=== PATIENT | male | born 1975 | race Caucasian/White ===

== ENCOUNTER → 2020-08-22 09:52 | Outpatient (BNVA) | payer OTHER, SELFPAY | PROVIDERS: PCP Physician Assistant; Referring Provider Physician Assistant; Visit Provider Physician Assistant | DX: Z76.89 Persons encountering health services in other specified circumstances (principal) ==

== ENCOUNTER → 2020-08-27 09:05 | Outpatient (BNVA) | payer OTHER, SELFPAY | PROVIDERS: PCP Physician Assistant; Referring Provider Physician Assistant; Visit Provider Orthopaedic Surgery | DX: Z76.89 Persons encountering health services in other specified circumstances (principal) ==

== ENCOUNTER → 2020-09-30 13:03 | Outpatient (BNVA) | payer OTHER, SELFPAY | PROVIDERS: PCP Physician Assistant; Visit Provider Orthopaedic Surgery | DX: Z76.89 Persons encountering health services in other specified circumstances (principal) ==

== ENCOUNTER → 2020-11-05 13:19 | Outpatient (BNVA) | payer OTHER, SELFPAY | PROVIDERS: PCP Physician Assistant; Visit Provider Physician Assistant | DX: Z76.89 Persons encountering health services in other specified circumstances (principal) ==

== ENCOUNTER 2020-11-13 08:09 | Day surgery (SDC) | payer OTHER, SELFPAY ==
[2020-11-07 14:14] VITALS: BMI 21.8
--- NOTE | 2020-11-12 10:29 | P.CONAN_ITS ---
Documented by User: Arti Romanney 11/12/20 10:29 HPI - Anesthesia Eval Consult details Narrative: 45yo M for Removal Orthopedic Hardware,knee [facility] Past Medical History Medical History Asthma History of back pain Right patella fracture Surgical History Surgical History S/P ORIF (open reduction internal fixation) fracture (~04/14/20) Social History Social History Are you a primary live in caregiver to a significant other at home: No Do you presently have visiting nurse or other home services: No Alcohol intake: current Alcohol intake frequency: a few times a week Smoking Status: Current every day smoker Tobacco Type: E-Cigarette Use of substances other than those prescribed or required for medical reasons: No Have you been hit, kicked, punched, or otherwise hurt by someone within the past year? 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 Allergies Allergy/AdvReac Type Severity Reaction Status Date / Time No Known Allergies Allergy Verified 11/13/20 08:18 Home Medications Medication Instructions Recorded Confirmed Type No Known Home Meds 11/07/20 11/13/20 History Exam Exam Date and Time: November 12, 2020 1029 Height,Weight and Vital Signs: Height 5 ft 9 in Weight 67.132 kg Assessment and Plan Assessment Anesthesia Assessment: Chart Reviewed Documented by User: Ori Montanez MD 11/13/20 09:39 PMFSH Past Medical History Medical History Asthma History of back pain Right patella fracture Surgical History Surgical History S/P ORIF (open reduction internal fixation) fracture (~04/14/20) Social History Social History Are you a primary live in caregiver to a significant other at home: No Do you presently have visiting nurse or other home services: No Alcohol intake: current Alcohol intake frequency: a few times a week Smoking Status: Current every day smoker Tobacco Type: E-Cigarette Use of substances other than those prescribed or required for medical reasons: No Have you been hit, kicked, punched, or otherwise hurt by someone within the past year? 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 Allergies Allergy/AdvReac Type Severity Reaction Status Date / Time No Known Allergies Allergy Verified 11/13/20 08:18 Home Medications Medication Instructions Recorded Confirmed Type No Known Home Meds 11/07/20 11/13/20 History Exam Airway Mallampati Class: II TM Dist: >3cm Neck ROM: Full Loose/Missing/Broken Teeth: No Heart: RRR Lungs: NL Other: AO Assessment and Plan Assessment Anesthesia Assessment: Anesthesia Plan Discussed and Chart Reviewed Final Anesthetic Review NPO: Yes ASA Class: I Final Preanesthetic Review: No Changes in Pt Med Stat, Meds/Allgs Chart Reviewed, Consent Obtained/Reviewed and Anes Risks/Benef Reviewed Patient Risk: Low Procedure Risk: Low Anesthetic Plan Anesthetic Plan: GA Disposition: Standard PACU
[2020-11-13] VITALS (7 sets, daily range): BP systolic 123–149; BP diastolic 82–93; PULSE 61–75; RESP 16–20; TEMP 36–36.6; O2SAT 97–100
--- NOTE | 2020-11-13 07:35 | MHC.SHP ---
Pre-Procedural Eval Section A The patient is an INPATIENT: No Changes since office visit: No Cold of Flu in the past 2 weeks, No New Medical Problems, No Changes in Medication and No Patient answered all questions The History & Physical has been completed within 30 days and I have reviewed it.: Yes Section B Chief Complaint: knee pain Allergies: Allergies Allergy/AdvReac Type Severity Reaction Status Date / Time No Known Allergies Allergy Verified 11/05/20 13:43 Plan I have reviewed the history and physical and performed a pertinent physical examination on my patient. No changes have occurred unless specified.
[2020-11-13] MEDS: Lactated Ringers 1,000 ML 100 ML IVCONT (08:48)
--- NOTE | 2020-11-13 10:49 | PM.PRCOR ---
Brief Operative Note Date of procedure: 11/13/20 Pre-op diagnosis: Retained hardware right patella Post-op diagnosis: same Procedure: Removal of hardware right knee Anesthesia: GLMA Surgeon: Juanjose Carr Personal Finance Instructor: Codie Craft Estimated blood loss (mL): 20 Condition: stable Disposition: PACU
[2020-11-13] MEDS: oxyCODONE HCl Immed Release 5 MG TABLET PO (11:02)
[2020-11-13] MEDS: Acetaminophen 325 MG TABLET 650 MG PO (11:03)
--- NOTE | 2020-11-13 12:47 | HO.POSTANES ---
Post Anesthesia Evaluation Post Anesthesia Evaluation Vital Signs: Vital Signs Temp Pulse Resp BP Pulse Ox 11/13/20 11:35 97 F 66 16 141/87 H 99 11/13/20 11:20 64 16 138/85 100 11/13/20 11:05 68 18 135/90 H 99 11/13/20 11:00 66 18 132/87 99 11/13/20 10:55 61 18 133/87 99 11/13/20 10:50 96.8 F 75 20 123/82 100 11/13/20 08:30 97.8 F 72 16 149/93 H 97 Anesthesia: General LMA Mental Status: Awake Pain Control: Satisfactory Nausea/Vomiting: None Hydration: Adequate Anesthesia-Related Issues: No Anes. Related Issues
--- NOTE | 2020-11-18 09:46 | OP_ITS ---
SURGEON: Juanjose Carr MD PREOPERATIVE DIAGNOSIS: Retained/painful hardware, right knee. POSTOPERATIVE DIAGNOSIS: Retained/painful hardware, right knee. PROCEDURE PERFORMED: Removal of hardware, right patella. ESTIMATED BLOOD LOSS: COMPLICATIONS: ANESTHESIA: ASSISTANTS: MYRON Galloway. SPECIMENS: CLINICAL NOTE: This gentleman had operative fixation of his patella last year. He now is having problems with the hardware and therefore after explaining the risks, benefits, and alternatives and answering all his questions, it was mutually agreed upon to carry out the following procedure. DESCRIPTION OF PROCEDURE: Under a general anesthetic, the patient was placed supine on the operating table. Pneumatic tourniquet cuff was placed around the upper right thigh, but was not inflated during the case. The right knee was then prepped and draped in standard fashion. Surgical time-out was then performed. The patient was identified, procedure confirmed, site confirmed. Medical analogy and history were reviewed. Preoperative antibiotics were not given. No DVT prophylaxis. All other items were discussed and agreed upon. Standard midline incision of the knee was carried out over the old scar. The hardware was identified. The 2 parallel wires were removed first and then the cerclage wire was removed without incident. At this point, we proceeded to closure. Wound was thoroughly irrigated. Skin approximated using interrupted 2-0 Dexon. Skin was closed with ivy. Sterile dressing was then applied. The patient's anesthesia was then reversed and transferred supine to the room bed, then taken to recovery room in good condition. Intraoperatively, there was approximately 10 mL blood loss. No complications. Juanjose Carr MD KKI/MODL / [id number]
== END 2020-11-13 12:07 | disposition home or self-care (01) ==
PROVIDERS: PCP Physician Assistant; Visit Provider Orthopaedic Surgery
PROC: (CPT 20680; principal; 2020-11-13 09:50)
DX: T84.84XA Pain due to internal orthopedic prosthetic devices, implants and grafts, initial encounter (principal); Z98.890 Other specified postprocedural states; M25.561 Pain in right knee; Y79.3 Surgical instruments, materials and orthopedic devices (including sutures) associated with adverse incidents; Y92.9 Unspecified place or not applicable; J45.909 Unspecified asthma, uncomplicated; F17.290 Nicotine dependence, other tobacco product, uncomplicated
CPT/HCPCS: 20680; J1100; J2405; J3010

== ENCOUNTER 2020-11-20 11:02 | Outpatient (REF) | payer OTHER, SELFPAY | END 2020-11-20 11:03 | disposition home or self-care (01) | LOC: HO.LAB 11:02 | PROVIDERS: PCP Physician Assistant; Visit Provider Internal Medicine | DX: Z20.822 Contact with and (suspected) exposure to COVID-19 (principal) | CPT/HCPCS: 36415; C9803; U0003 ==

== ENCOUNTER → 2020-11-26 13:50 | Outpatient (BNVA) | payer OTHER, SELFPAY | PROVIDERS: PCP Physician Assistant; Visit Provider Physician Assistant | DX: Z76.89 Persons encountering health services in other specified circumstances (principal) | CPT/HCPCS: 99212 ==

== ENCOUNTER 2020-12-01 09:00 | Outpatient (RCR) | payer OTHER, SELFPAY ==
--- NOTE | 2020-08-20 14:37 | MHC.PT.OD ---
[facility] [place] [facility] [place] [facility] [place] Office [address] Elizabeth Rosa [address] [phone] F: [phone] F: [phone] F: [phone] F: [phone] Physical Therapy Daily Note Diagnosis: ORIF RIGHT PATELLA Date of Surgery: 04/14/2020 Date of Evaluation: 05/12/20 Treatments to Date: 27 Cancellations to Date: 1 No Shows to Date: 0 Authorized Visits: PENDING ADDITIONAL Insurance End Date: Precautions/ Contraindications:S/P ORIF RIGHT PATELLA CLOSED FX Subjective: Pt has MD follow up Aug 22. Pain Score: Pain Location: Objective Flowsheet: Tests & Measures Pt ching 8 step w/o px. Exercises ELIPTICAL X 10 MIN qs level 2 standing hip abd ea side in cybex 30 ea UE support. calf raises x 30. B hamstring curls: 3x10 step ups 8 x 30 step up<>over foam roll 3x10 SP REV50#/FWD AMB 50# AT WAIST HT 2x 10REPS SP side stepping 10 reps ea direction SP SLS r for UE exts ROCKERBOARD BALANCE : 4# MED BALL SQUATS X 30/BALL TOSS OFF WALL CHEST/OVERHEAD/DRIBBLINGX 50/ OFF REBOUNDER OVERHEAD/SINGLE ARM X 30EA Modalities Assessment: Lino presents today with no complaints of pain, only minimal sensation distal patella secondary to pin. He demonstrates significantly improved strength and ROM, demonstrates improved gait patterning with only minimal heel strike lag noted on this date. PT Plan: TRIALLOW IMPACT JUMP PROGRAM/RETURN TO RUN IF OK PER MD Discharge Today? 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
--- NOTE | 2020-11-24 13:55 | MHC.PT.DC ---
[facility] [place] Office [place] Office [place] Office [address] Elizabeth Rosa [address] [phone] F: [phone] F: [phone] F: [phone] F: [phone] Physical Therapy Discharge Report Diagnosis: ORIF RIGHT PATELLA Date of Surgery: 04/14/2020 Date of Evaluation: 05/12/20 Date of Discharge: 11/12/20 Treatments to Date: 42 Cancellations to Date: 1 No Shows to Date: 0 Discharge Status: Discharge Summary: 10/17 pt has surgery scheduled Nov 13. pre op the Oct. Electronically signed by: Jaylyn Disla BUFFING WHEEL INSPECTOR Please sign and return to therapist. Thank you for your referral.
--- NOTE | 2021-01-01 12:06 | MHC.PT.DC ---
[facility] [place] Office [place] Office [place] Office [address] Elizabeth Rosa [address] [phone] F: [phone] F: [phone] F: [phone] F: [phone] Physical Therapy Discharge Report Diagnosis: ORIF RIGHT PATELLA Date of Surgery: 04/14/2020 Date of Evaluation: 05/12/20 Date of Discharge: Treatments to Date: 42 Cancellations to Date: 7 No Shows to Date: 1 Discharge Status: Discharge Summary: Following the removal of his patellar hardware Lino initially arrived with significant reduction in pain and improvement in mobility. Unfortunately, due to his work schedule he was unable to attend therapy since 12/01/20. He has no additional visits scheduled with us and we are DCing him at this. Electronically signed by: CISCO NOONAN PT, DPT Please sign and return to therapist. Thank you for your referral.
== END 2021-01-26 13:46 | disposition other institution (70) ==
LOC: HO.PT 09:00
PROVIDERS: Visit Provider Physician Assistant
DX: S82.031D Displaced transverse fracture of right patella, subsequent encounter for closed fracture with routine healing (principal)
CPT/HCPCS: 97110; 97112; 97140; 97530

== ENCOUNTER 2021-06-01 09:54 | Outpatient (REF) | payer OTHER, SELFPAY ==
[2021-06-01 12:04] LABS: Estimated Average Glucose 114 mg/dL; Hemoglobin A1c % 5.6 %
[2021-06-01 12:26] LABS: Alanine Aminotransferase 15 U/L (0-40); Albumin Level 4.9 g/dL (3.5-5.0); Alkaline Phosphatase 84 U/L (39-117); Anion Gap 15 (12-20); Aspartate Amino Transferase 20 U/L (5-37); Bilirubin Total 0.6 mg/dL (0.0-1.0); Blood Urea Nitrogen 16 mg/dL (9-16); Calcium 9.8 mg/dL (8.4-10.2); Carbon Dioxide 24 mmol/L (22-29); Chloride 105 mmol/L (96-108); Cholesterol 227 mg/dL; Estimated Glomerular Filt Rate > 60; Glucose Fasting 93 mg/dL (60-99); HDL Cholesterol 49 mg/dL; LDL Cholesterol Calculated 135 mg/dl; Potassium 4.4 mmol/L (3.3-5.1); Sodium 140 mmol/L (135-145); Total Protein 8.4 g/dL (6.5-8.0); Triglycerides 217 mg/dL
[2021-06-01 13:32] LABS: Free T4 (Free Thyroxine) 0.96 ng/dL (0.71-1.85)
== END 2021-06-01 09:55 | disposition home or self-care (01) ==
LOC: HO.LAB 09:54
PROVIDERS: PCP Physician Assistant; Visit Provider Physician Assistant
DX: Z12.5 Encounter for screening for malignant neoplasm of prostate (principal); Z13.29 Encounter for screening for other suspected endocrine disorder; Z13.220 Encounter for screening for lipoid disorders
CPT/HCPCS: 36415; 80053; 80061; 83036; 84153; 84439; 84443

== ENCOUNTER 2022-07-22 06:01 | Outpatient (REF) | payer OTHER, SELFPAY ==
[2022-07-22 07:49] LABS: Hematocrit 38.7 % (42.0-52.0); Hemoglobin 12.1 g/dl (14.0-18.0); Mean Corpuscular HGB Conc 31.3 g/dl (31.0-36.0); Mean Corpuscular Hemoglobin 23.9 pg (27.0-33.0); Mean Corpuscular Volume 76.5 fL (80.0-98.0); Mean Platelet Volume 8.9 fL (9.4-12.4); Platelet Count 449 X10*3/uL (160-400); Red Blood Count 5.06 X10*6/uL (4.60-5.80); Red Cell Distribution Width 15.5 % (11.0-16.0)
[2022-07-22 08:24] LABS: Alanine Aminotransferase 16 U/L (0-40); Albumin Level 4.4 g/dL (3.5-5.0); Alkaline Phosphatase 73 U/L (39-117); Anion Gap 16 (12-20); Aspartate Amino Transferase 18 U/L (5-37); Bilirubin Total 0.5 mg/dL (0.0-1.0); Blood Urea Nitrogen 14 mg/dL (9-16); Calcium 9.4 mg/dL (8.4-10.2); Carbon Dioxide 28 mmol/L (22-29); Chloride 104 mmol/L (96-108); Cholesterol 150 mg/dL; Estimated Glomerular Filt Rate > 60; Glucose Fasting 76 mg/dL (60-99); HDL Cholesterol 50 mg/dL; LDL Cholesterol Calculated 69 mg/dl; Potassium 4.5 mmol/L (3.3-5.1); Sodium 143 mmol/L (135-145); Total Protein 7.4 g/dL (6.5-8.0); Triglycerides 159 mg/dL
[2022-07-22 08:47] LABS: Prostate Specific Antigen Scr 0.51 ng/mL (<0.05-4.0); TSH reflex Free T4 0.99 uIU/mL (0.32-4.0)
== END 2022-07-22 06:02 | disposition home or self-care (01) ==
LOC: HO.LAB 06:01
PROVIDERS: PCP Physician Assistant; Visit Provider Physician Assistant
DX: Z12.5 Encounter for screening for malignant neoplasm of prostate (principal); Z13.29 Encounter for screening for other suspected endocrine disorder; Z13.220 Encounter for screening for lipoid disorders
CPT/HCPCS: 36415; 80053; 80061; 84153; 84443; 85027

== ENCOUNTER 2022-07-23 06:08 | Outpatient (REF) | payer OTHER, SELFPAY ==
[2022-07-23 08:09] LABS: Iron 84 mcg/dL (45-160); Percent Iron Saturation 23 % (15-50); Total Iron Binding Capacity 370 mcg/dL (228-428); Unsaturated Iron Binding 286 ug/dL
== END 2022-07-23 06:09 | disposition home or self-care (01) ==
LOC: HO.LAB 06:08
PROVIDERS: PCP Physician Assistant; Visit Provider Physician Assistant
DX: D50.9 Iron deficiency anemia, unspecified (principal)
CPT/HCPCS: 36415; 83540

== ENCOUNTER → 2022-09-15 14:40 | Outpatient (BNVA) | payer OTHER, SELFPAY | PROVIDERS: PCP Physician Assistant; Visit Provider Nurse Practitioner | DX: Z01.818 Encounter for other preprocedural examination (principal) | CPT/HCPCS: 99202; 99212 ==

== ENCOUNTER 2023-05-17 10:03 | Day surgery (SDC) | payer OTHER, SELFPAY ==
[2023-05-17 10:34] VITALS: BMI 20.1
[2023-05-17 10:46] VITALS: BP 111/79; PULSE 74; RESP 16; TEMP 36.7; O2SAT 100
--- NOTE | 2023-05-17 11:10 | MHC.SHP ---
Pre-Procedural Eval Section A Date of Service: 05/17/23 The patient is an INPATIENT: No The History & Physical has been completed within 30 days and I have reviewed it.: No Section B Chief Complaint: screening Relevant Family History (Specify if Yes): No Relevant Social History: Tobacco Use (E cig) Present Medications: see Short Stay Collaborative assessment Medical History: Significant History (Asthma Borderline high cholesterol Insomnia History of patella fracture History of low back pain) History of Previous Operations: Relevant previous surgery/procedure and date(s) (S/P ORIF (open reduction internal fixation) fracture (~04/14/20)) Allergies: Allergies Allergy/AdvReac Type Severity Reaction Status Date / Time No Known Allergies Allergy Verified 09/15/22 14:47 Review of Systems Sugical H&P ROS: Negative: Constitution, Cardiovascular, Respiratory and Gastrointestinal Exam Surgical H&P Exam: Normal: Heart, Normal: Lungs, Normal: Extremities and Normal: Abdomen Plan Diagnosis/Plan: Unchanged I have reviewed the history and physical and performed a pertinent physical examination on my patient. No changes have occurred unless specified. Time Spent With Patient Time: Total time managing care of this patient today ____ minutes.
--- NOTE | 2023-05-17 11:59 | HO.ANESPROP2 ---
Documented by User: Arti Anderson NP 05/16/23 12:02 HPI - Anesthesia Eval Consult details Narrative: 47yo M for Colonoscopy PMFSH Active Problems Active Problems: All Active Problems (Updated 09/15/22 @ 14:53 by SALAS Strickland) Pre-op examination (Acute) Anemia (Acute) Borderline high cholesterol (Acute) Colon cancer screening (Acute) Insomnia (Acute) Annual physical exam (Acute) Screening for hypothyroidism (Acute) Screening for hypercholesterolemia (Acute) Screening for diabetes mellitus (DM) (Acute) S/P hardware removal (Acute) Fracture of patella with routine healing (Acute) History of removal of retained hardware (Acute) Past Medical History Medical History Asthma History of back pain Right patella fracture Family History Family History Mother Mental health disorder Breast cancer in female Surgical History Surgical History S/P ORIF (open reduction internal fixation) fracture (~04/14/20) Social History Social History Housing: Apartment Are you a primary healthcare or medical to a significant other at home: No Do you presently have visiting nurse or other home services: No Alcohol intake: current Alcohol intake frequency: holidays/special occasions only Alcohol type: beer Patient Tobacco Use Status: Current everyday Tobacco user Tobacco use type: Smokeless Tobacco e-Cigarette/Vaping Use: Currently Using Use of substances other than those prescribed or required for medical reasons: Yes Substance Use Frequency: Daily Are you DNR?: No Advance Directives: No Advance Directives Information Provided: Yes Advance Directives on File: No service: No Current occupational status: employed 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 Allergies Allergy/AdvReac Type Severity Reaction Status Date / Time No Known Allergies Allergy Verified 09/15/22 14:47 Exam Exam Date and Time: May 16, 2023 120 Assessment and Plan Assessment Anesthesia Assessment: Chart Reviewed Documented by User: Bernarda Sousa DO 05/17/23 12:00 [facility] Past Medical History Medical History Asthma History of back pain Right patella fracture Family History Family History Mother Mental health disorder Breast cancer in female Family history of problems with anesthesia: No Surgical History Surgical History S/P ORIF (open reduction internal fixation) fracture (~04/14/20) History of Problems with Anesthesia: No Social History Social History Housing: Apartment Are you a primary healthcare or medical to a significant other at home: No Do you presently have visiting nurse or other home services: No Alcohol intake: current Alcohol intake frequency: holidays/special occasions only Alcohol type: beer Patient Tobacco Use Status: Current everyday Tobacco user Tobacco use type: Smokeless Tobacco e-Cigarette/Vaping Use: Currently Using Use of substances other than those prescribed or required for medical reasons: Yes Substance Use Frequency: Daily Are you DNR?: No Advance Directives: No Advance Directives Information Provided: Yes Advance Directives on File: No service: No Current occupational status: employed 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 Allergies Allergy/AdvReac Type Severity Reaction Status Date / Time No Known Allergies Allergy Verified 09/15/22 14:47 Exam Height,Weight and Vital Signs: Height 5 ft 8 in Weight 59.874 kg Vital Signs Temperature 98.0 F 05/17/23 10:46 Pulse Rate 74 05/17/23 10:46 Respiratory Rate 16 05/17/23 10:46 Blood Pressure 111/79 05/17/23 10:46 Pulse Oximetry 100 05/17/23 10:46 Oxygen Delivery Method Room Air 05/17/23 10:46 Temperature 98.0 F 05/17/23 10:46 Pulse Rate 74 05/17/23 10:46 Respiratory Rate 16 05/17/23 10:46 Blood Pressure 111/79 05/17/23 10:46 Pulse Oximetry 100 05/17/23 10:46 Oxygen Delivery Method Room Air 05/17/23 10:46 Airway Mallampati Class: I TM Dist: >3cm Neck ROM: Full Loose/Missing/Broken Teeth: No Heart: S1S2 Lungs: CTAB Assessment and Plan Assessment Anesthesia Assessment: Anesthesia Plan Discussed and Chart Reviewed Final Anesthetic Review Family History of Problems with Anesthesia: No History of Problems with Anesthesia: No NPO: Yes ASA Class: I Final Preanesthetic Review: No Changes in Pt Med Stat, Meds/Allgs Chart Reviewed, Consent Obtained/Reviewed and Anes Risks/Benef Reviewed Patient Risk: Low Procedure Risk: Low Anesthetic Plan Anesthetic Plan: MAC: and Agree w/ Assess. and Plan Disposition: Standard PACU
--- NOTE | 2023-05-17 12:46 | W.PM.OPN ---
Operative Note Operative Note Date of Service: 05/17/23 Narrative: COLONOSCOPY TILL CECUM WITH BIOPSIES Pre-op diagnosis: Colon cancer screening Post-op diagnosis:? Colon polyps, diverticulosis, hemorrhoids Endoscopist:? Mark Motta MD Anesthesia:?MAC Consent: Indications for the procedure and potential complications of bleeding, perforation, reaction to medications and missed diagnosis were discussed with the patient and informed consent was obtained. Instrument: Olympus PCF H 190 L variable stiffness pediatric colonoscope Monitoring: Vital signs and clinical assessment, intermittent blood pressure monitoring, continuous EKG monitoring, Pulse oximetry and Carbon Dioxide monitoring were done throughout the procedure. Please see anesthesia flowsheet. Colon withdrawl time was 24 minutes. Procedure: The patient was placed in the left lateral decubitis position and pre-procedure medications were administered. After a digital rectal examination of the ano-rectum, the video colonoscope was inserted into the rectum and advanced through the colon to the cecum. The colonoscope was slowly withdrawn in a retrograde panoramic fashion and the colon mucosa was carefully examined including a retroflexed view of the rectum. Findings and interventions are described below. Procedure Difficulty: Without difficulty Findings: Terminal Ileum: Not evaluated Cecum: Normal Ascending Colon: Normal Transverse Colon: Normal Descending Colon: Moderate diverticulosis Sigmoid Colon: Moderate diverticulosis Rectum: Two 8 - 10 mm diminutive appearing polyps - biopsied. Ano-rectum: Moderate internal hemorrhoids Colon preparation: Excellent - there were excessive bubbles in the colon which were washed and suctioned. Impression and Post Procedure Diagnosis: Colonoscopy Findings: Two 8 - 10 mm diminutive appearing polyps - biopsied. Moderate diverticulosis seen in the left colon Moderate hemorrhoids on retroflexed exam. Plan: Await pathology results Patient has an appointment on 05/27/23 in the GI Clinic with Basilia Hull NP. Repeat Colonoscopy interval based on path results - in 1 year if polyps are adenomatous and 10 years if polyps are hyperplastic. Above findings were reviewed with the patient and colon polyps and diverticulosis handouts were given in the discharge area
[2023-05-17 12:54] VITALS: BP 95/60; PULSE 62; RESP 16; TEMP 36.1; O2SAT 97
[2023-05-17 13:08] VITALS: BP 115/78; PULSE 66; RESP 18; TEMP 36.1; O2SAT 100
== END 2023-05-17 13:56 | disposition home or self-care (01) ==
PROVIDERS: PCP Physician Assistant; Visit Provider Internal Medicine Gastroenterology
PROC: 0DJD8ZZ Inspection of Lower Intestinal Tract, Via Natural or Artificial Opening Endoscopic (ICD-10-PCS; CPT 45378; principal; 2023-05-17 11:50)
DX: Z12.11 Encounter for screening for malignant neoplasm of colon (principal); K63.5 Polyp of colon; K57.30 Diverticulosis of large intestine without perforation or abscess without bleeding; K64.8 Other hemorrhoids; F17.200 Nicotine dependence, unspecified, uncomplicated; Z80.3 Family history of malignant neoplasm of breast
CPT/HCPCS: 45380; 88305

== ENCOUNTER → 2023-05-17 10:03 | Outpatient (BNV) | payer OTHER, SELFPAY | PROVIDERS: PCP Physician Assistant; Visit Provider Internal Medicine Gastroenterology | DX: Z12.11 Encounter for screening for malignant neoplasm of colon (principal); K63.5 Polyp of colon; K57.30 Diverticulosis of large intestine without perforation or abscess without bleeding | CPT/HCPCS: 45380 ==

== ENCOUNTER 2023-05-27 09:30 | Outpatient (AMB) | payer OTHER, SELFPAY ==
--- NOTE | 2023-05-27 09:32 | A.OFFVIS_ITS ---
Intake Vital Signs 05/27/23 09:34 Height 5 ft 8 in Weight 132 lb 0.91 oz BMI 20.1 BP 113/74 Blood Pressure Location Lt brachial Position Sitting Pulse 83 Intake Visit Reasons: S/p Monica Intake Note: Patient presents to in office visit today in colonoscopy follow up. Reports doing good and denies having any GI symptoms today. Underwent colonoscopy on 05/17/[address] Motta. Manager Analytical Required: No Allergies No Known Allergies Allergy (Verified 05/27/23 09:38) HPI S/p Monica HPI Details Assessment & Plan (1) Pre-op examination: ?Code(s): Z01.818 - Encounter for other preprocedural examination ?Plan: This will be his first colonoscopy He denies any bowel or upper GI problems. There was no trouble with anesthesia or sedation during his patella repair. His asthma is well controlled and no cardiac problems. No ID problems. There is no FHX of crc or polyps, but a lot of breast cancer. ? ? ? Medications: New peg 3350-electroly martha [id number] -5.86 gram (Golyt nikky) ?? until feca l effluent is bud r; do not exceed a total volume of 2 ,000 mL 240 mL? PO Q10M 1 day 4,000 mL 0RF Z12.11 - Encounter for screening for malignant neoplas m of colon COLONOSCOPY 05/17/23 Findings: Terminal Ileum: Not evaluated Cecum:? Normal Ascending Colon:? Normal Transverse Colon:? Normal Descending Colon:? Moderate diverticulosis Sigmoid Colon:? Moderate diverticulosis Rectum:? Two 8 - 10 mm diminutive appearing polyps - biopsied. Ano-rectum:? Moderate internal hemorrhoids Colon preparation: Excellent ? - there were excessive bubbles in the colon which were washed and suctioned. Impression and Post Procedure Diagnosis: Colonoscopy Findings: Two 8 - 10 mm diminutive appearing polyps - biopsied. Moderate diverticulosis seen in the left colon Moderate hemorrhoids on retroflexed exam. Plan: Await pathology results Patient has an appointment on 05/27/23 in the GI Clinic with? Basilia Hull NP. Repeat Colonoscopy interval based on path results - in 1 year if polyps are adenomatous and 10 years if polyps are hyperplastic. BIOPSY Received: 05/17/23 Diagnosis Rectum, polypectomy:? Hyperplastic polyp. TODAY'S VISIT He is agreeable to a 10 year follow up. The procedure was well tolerated. The results were explained and the patient is agreeable to the follow-up interval as stated. The bowel pattern has returned to normal. Education was provided to tell any 1st degree relatives about their findings to be sure that they are screened by age 45. Educated that they will be put on a recall list when it is time for their repeat scope but should they move out of state or away from the hospital they will need to remember along with their primary to repeat the procedure in a timely fashion to avoid any adverse complications. FORMERLY [facility], [facility]1983 Medical History Annual physical exam Asthma Colon cancer screening History of back pain Pre-op examination Right patella fracture Screening for diabetes mellitus (DM) Screening for hypercholesterolemia Screening for hypothyroidism Surgical History S/P ORIF (open reduction internal fixation) fracture (~04/14/20) Family History Mother Mental health disorder Breast cancer in female Social History Housing: Apartment Are you a primary patient care manager to a significant other at home: No Do you presently have visiting nurse or other home services: No Alcohol intake: current Alcohol intake frequency: holidays/special occasions only Alcohol type: beer Patient Tobacco Use Status: Current everyday Tobacco user Tobacco use type: Smokeless Tobacco e-Cigarette/Vaping Use: Currently Using Advance Directives: No Advance Directives Information Provided: No service: No Current occupational status: employed 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 Review of Systems Const Denies fatigue, Denies fever(s), Denies night sweats, Denies poor appetite and Denies weight loss ENT Reports Normal hearing present, Denies dental pain, Denies dysphagia, Denies hearing loss, Denies mouth pain, Denies odynophagia, Denies throat swelling, Denies tongue swelling and Reports other (Dentition adequate) Card Reports no additional complaints Resp Reports no additional complaints GI Denies abdominal pain, Denies melena, Denies bloating, Denies hematochezia, Denies constipation, Denies GI cramping, Denies dysphagia, Denies excessive flatus, Denies early satiety, Denies heartburn, Denies diarrhea, Denies nausea, Denies odynophagia, Denies vomiting and Denies hematemesis Skin/Breast Denies pruritus, Denies lesions, Denies rash and Denies jaundice Neuro Reports Normal hearing present and Denies Abnormal speech present Endo Denies fatigue Aller/Immun Denies throat swelling and Denies tongue swelling Physical Exam Vital Signs: Last Vital Signs Pulse 83 05/27/23 09:34 BP 113/74 05/27/23 09:34 BMI result Body Mass Index 20.1 Const General: cooperative, no acute distress, well developed and well groomed Nutritional Appearance: average body habitus and well nourished Orientation/consciousness: oriented to person, oriented to place and oriented to time Limitations: No language barrier HEENT Head: Yes normocephalic and Yes atraumatic Eyes General: appearance normal, both eyes and all related structures Pupils: Equal, round and reactive pupils present Neck Neck: Yes normal visual inspection and Yes no lymphadenopathy Thyroid: Thyroid normal Resp Effort & Inspection: normal respiratory effort and able to speak in complete sentences Auscultation: clear to auscultation bilaterally Cardio Rate: regular rate Rhythm: regular rhythm Heart sounds: Normal, physiologic split S2 sound present Peripheral pulses: radial pulses present and posterior tibial pulses present GI Inspection: No distended and No Abdominal panniculus present Palpation (GI): Soft to palpation, nontender, no guarding, not rigid and No hepatosplenomegaly present Percussion: Yes normal to percussion Auscultation: normal bowel sounds Rectal Exam - Male: Yes deferred Skin General skin exam: no rashes or lesions noted, turgor normal, skin not dry, no jaundice, No spider nevi and no striae Rashes: no rashes Nails: normal Neuro General: oriented to person, oriented to place and oriented to time Cranial nerves: Yes Equal, round and reactive pupils present and Yes Normal hearing present Speech: No Abnormal speech present Extrem General: Yes normal to inspection, No clubbing, No cyanosis and No edema Psych Appearance: grossly normal and well kempt Mental Status: mental status grossly normal Speech and movement: Normal speech and movement present Affect: normal affect Attitude: cooperative Thought process: Normal thought process present and not confabulating Thought content: Normal thought content present Insight: Good insight present (Psych) Judgement: Good judgement present (Psych) Assessment & Plan Assessment & Plan (1) Colon cancer screening: Comment: 2022 equal hyperplastic polyp repeat in 10 years Code(s): Z12.11 - Encounter for screening for malignant neoplasm of colon Plan: He is agreeable to a 10 year follow up. The procedure was well tolerated. The results were explained and the patient is agreeable to the follow-up interval as stated. The bowel pattern has returned to normal. Education was provided to tell any 1st degree relatives about their findings to be sure that they are screened by age 45. Educated that they will be put on a recall list when it is time for their repeat scope but should they move out of state or away from the hospital they will need to remember along with their primary to repeat the procedure in a timely fashion to avoid any adverse complications. (2) H/O colonoscopy: Code(s): Z98.890 - Other specified postprocedural states Plan: 2022 equal hyperplastic polyp repeat in 10 years Coding Level of Care Code Est Pt Level 3 (13166) Diagnoses Colon cancer screening Z. H/O colonoscopy Z98.890
[2023-05-27 09:34] VITALS: BP 113/74; PULSE 83; BMI 20.1
== END 2023-05-27 10:14 | disposition home or self-care (01) ==
PROVIDERS: PCP Physician Assistant; Visit Provider Nurse Practitioner
DX: K57.30 Diverticulosis of large intestine without perforation or abscess without bleeding (principal); D12.8 Benign neoplasm of rectum; Z71.2 Person consulting for explanation of examination or test findings
CPT/HCPCS: 99213

== ENCOUNTER → 2023-05-27 09:30 | Outpatient (BNVA) | payer OTHER, SELFPAY | PROVIDERS: PCP Physician Assistant; Visit Provider Nurse Practitioner | DX: Z12.11 Encounter for screening for malignant neoplasm of colon (principal); Z80.3 Family history of malignant neoplasm of breast | CPT/HCPCS: 99212 ==

== ENCOUNTER 2023-06-06 18:38 | Emergency (ER) | payer OTHER, SELFPAY ==
--- NOTE | 2023-06-06 19:57 | ED_ITS ---
HPI - General Adult General Chief complaint: Dental/Oral Stated complaint: needs anitbiotics for mouth infection Time Seen by Provider: 06/06/23 19:59 Source: patient Mode of arrival: ambulatory Limitations: no limitations History of Present Illness HPI narrative: Patient is a 47 year old assigned male at with a history of asthma presenting to the emergency department today with right sided dental pain. Patie nt states that over the last few days he has had worsening right sided dental pain. Patient states that he knows he needs to get the tooth pulled but needs to get the infection under control first. Patient denies any dizziness, lightheadedness, abdominal pain, nausea, vomiting, fever, chills, blurry vision, double vision, loss of vision, chest pain, difficulty breathing, shortness of breath, back pain, night sweats, pain with urination, increased urinary frequency, increased urinary urgency, blood in his urine or stool, syncope or a near syncopal episode, recent trauma or falls, bowel incontinence, bladder incontinence, bowel retention, bladder retention, or any other complaints at this time. Onset (ago): day(s) Location: mouth and right Radiation: non-radiation Severity: mild Severity scale (1-10): 3 Quality: aching and dull Pain Consistency: constant Relieving factors: none Exacerbating factors: none Associated symptoms: denies other symptoms Treatments prior to arrival: none Related Data Previous Rx's Medication Instructions Recorded chlorhexidine gluconate 0.12 % 15 ml buccal BID #118 mL 06/06/23 mouthwash (Peridex) naproxen 500 mg tablet 500 mg PO BID 7 days #14 tabs 06/06/23 penicillin V potassium 500 mg 500 mg PO BID 10 days #20 tabs 06/06/23 tablet Allergies Allergy/AdvReac Type Severity Reaction Status Date / Time No Known Allergies Allergy Verified 05/27/23 09:38 Review of Systems Constitutional: Constitutional: Reports no additional constitutional complaints, Denies chills, Denies fever(s) and Denies night sweats Eyes: Eyes: Reports no additional eye complaints, Denies blurry vision, Denies change in vision, Denies diplopia, Denies eye discharge, Denies loss of vision and Denies eye pain ENT: Denies dizziness Comments: right sided dental pain Cardiovascular: Cardiovascular: Reports no additional cardiovascular complaints, Denies chest pain, Denies lightheadedness, Denies Loss of Consciousness and Denies dyspnea Respiratory: Respiratory: Reports no additional respiratory complaints and Denies dyspnea Gastrointestinal: Gastrointestinal: Reports no additional gastrointestinal complaints, Denies abdominal pain, Denies melena, Denies hematochezia, Denies change in bowel habits and Denies change in stool character Genitourinary: Genitourinary: Reports no additional male genitourinary complaints, Denies hematuria, Denies oliguria, Denies difficulty urinating, Denies dysuria, Denies urinary frequency, Denies urinary hesitancy, Denies urinary incontinence and Denies urinary urgency Musculoskeletal: Musculoskeletal: Reports no additional musculoskeletal complaints, Denies numbness and Denies tingling Neurologic: Denies dizziness, Denies loss of vision, Denies numbness and Denies tingling Psychiatric: Psychiatric: Reports no additional psychiatric complaints Endocrine: Endocrine: Reports no additional endocrine complaints Hematologic/Lymphatic: Hematologic/Lymphatic: Reports no additional hematologic/lymphatic complaints Allergic/Immunologic: Allergic/Immunologic: Reports no additional allergic/immunologic complaints [facility] Past Medical History Attestation statement: The following information was validated with the patient. Source: old records reviewed and nursing notes reviewed Medical History Annual physical exam Asthma Colon cancer screening History of back pain Pre-op examination Right patella fracture Screening for diabetes mellitus (DM) Screening for hypercholesterolemia Screening for hypothyroidism Surgical History S/P ORIF (open reduction internal fixation) fracture (~04/14/20) Family History Family History Mother Mental health disorder Breast cancer in female Social History Social History Housing: Apartment Are you a primary medicare specialist to a significant other at home: No Do you presently have visiting nurse or other home services: No Alcohol intake: current Alcohol intake frequency: holidays/special occasions only Alcohol type: beer Patient Tobacco Use Status: Current everyday Tobacco user Tobacco use type: Smokeless Tobacco e-Cigarette/Vaping Use: Currently Using Advance Directives: No Advance Directives Information Provided: No service: No Current occupational status: employed 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 Physical Exam ED Vital Signs: Vital Signs - 24 hr 06/06/23 19:58 Temperature 97 F Pulse Rate 76 Respiratory Rate 16 Blood Pressure 112/85 Pulse Oximetry 98 Oxygen Delivery Method Room Air BMI result Body Mass Index 22.0 Const General: cooperative, no acute distress, alert and awake Nutritional Appearance: well nourished Orientation/consciousness: patient oriented x3 Limitations: no limitations HENMT Head: Yes normal to inspection and Yes atraumatic Ears: hearing grossly normal bilaterally and external ears normal General nose exam: Normal external nose present, no nasal discharge noted and no epistaxis Face and sinus: Yes normal facial exam, No abrasion and No laceration Mouth: Normal oral and palatal mucosa present, no drooling and no muffled voice Teeth image: 1. large dental caries with surrounding erythema, no fluctuance Eyes General: appearance normal, both eyes and all related structures Periorbital: periorbital findings normal Eyelids: Yes eyelids normal Conjunctivae: conjunctivae normal Pupils: Equal, round and reactive pupils present EOM: EOMs intact bilaterally Neck Neck: Yes normal visual inspection, Yes full ROM and Yes no lymphadenopathy Chest Chest palpation & inspection: normal inspection of the chest Resp Effort & Inspection: normal respiratory effort and able to speak in complete sentences GI Inspection: Yes normal to inspection Neuro General: patient oriented x3 and moves all extremities Cranial nerves: Yes Equal, round and reactive pupils present Cognition (Neuro): normal cognition Motor exam (neuro): 5/5 motor strength present throughout Sensory Exam: Normal double simultaneous stimulation for sensation Coordination: [id number] test normal Extrem General: Yes normal to inspection, Yes full ROM and Yes capillary refill normal Psych Appearance: grossly normal Mental Status: mental status grossly normal Affect: normal affect Attitude: cooperative Thought process: Normal thought process present Thought content: Normal thought content present Insight: Good insight present (Psych) Medical Decision Making Medical Decision Making MDM Narrative: Patient is a 47 year old assigned male at with a history of asthma presenting to the emergency department today with right sided dental pain. Patient's physical exam was as noted in the physical exam portion of this note. I explained my physical exam findings to the patient. I answered all questions asked by the patient. I stressed the importance of the patient taking his medication as prescribed. I stressed the importance of the patient following up with his primary care provider and a dentist. I stressed the importance of the patient returning to the emergency department immediately if his symptoms were to worsen or if he were to develop any dizziness, shortness of breath, difficulty breathing, chest pain, blurry vision, loss of vision, nausea, vomiting, abdominal pain, fever, chills, back pain, or any other complaints. Patient verbalized agreement and understanding with this treatment plan and discharge. Differential Diagnosis Differential Diagnoses: The differential diagnosis associated with the presentation includes Right sided dental pain Dental abscess Dental caries Poor dentition Prescription Management I considered prescription management with: Pain Medication (patient prescribed pain medication) and Antibiotic (patient prescribed an antibiotic) Discharge Plan Discharge Clinical Impression: Abscess, dental Patient Disposition: Home, Self-Care Instructions: Dental Abscess (ED) Additional Instructions: Follow up with your primary care provider. Return to the emergency department immediately if your symptoms worsen or if you develop any dizziness, shortness of breath, difficulty breathing, chest pain, blurry vision, loss of vision, nausea, vomiting, abdominal pain, fever, chills, back pain, or any other complaints. Call or visit any of the clinics below to establish with a dentist: [facility] [address] [place] [address] [facility] [address] [facility], [address] [address] [facility] [address] [place] [id number] [facility] [address], [place] [id number] [place] [address] [place] [address] Prescriptions: New penicillin V potassium 500 mg tablet 500 mg PO BID 10 Days Qty: 20 0RF naproxen 500 mg tablet 500 mg PO BID 7 Days Qty: 14 0RF chlorhexidine gluconate [Peridex] 0.12 % mouthwash 15 ml buccal BID Qty: 118 0RF Interventions: ED Discharge Assessment Last Done: 06/06/23 20:02 Discharge Date/Time: 06/06/23 20:03
[2023-06-06 19:58] VITALS: BP 112/85; PULSE 76; RESP 16; TEMP 36.1; O2SAT 98; BMI 22.0
== END 2023-06-06 20:03 | disposition home or self-care (01) ==
LOC: HO.ED 20:03
PROVIDERS: Emergency Provider Emergency Medicine; PCP Physician Assistant
DX: K04.7 Periapical abscess without sinus (principal); K08.89 Other specified disorders of teeth and supporting structures; F17.200 Nicotine dependence, unspecified, uncomplicated
CPT/HCPCS: 99282; 99283

== ENCOUNTER 2023-11-23 13:21 | Outpatient (AMB) | payer OTHER, SELFPAY ==
--- NOTE | 2023-11-23 13:22 | A.OFFPC_ITS ---
Vital Signs 11/23/23 13:23 Height 5 ft 8 in Weight 138 lb BMI 21.0 BP 102/74 Blood Pressure Location Lt brachial Position Sitting Pulse 80 Pulse Source Pulse Oximeter Pulse Oximetry (%) 95 Oxygen Delivery Method Room Air Intake Visit Reasons: Annual PE Business Support Liaison Required: No Allergies No Known Allergies Allergy (Verified 11/23/23 13:38) Medication List - Last Reconciled 11/23/23 by Melecio Juarez PA-C naproxen 500 mg PO BID 7 days Tobacco use date assessed: 11/23/23 Dental Screening Dental Screen Date: 11/23/23 Did you have a dental visit in the last 12 months?: Yes Did you have a dental problem in the last 6 months where you did not have access to dental care?: No Was dental information given to patient?: Patient has dentist HPI Annual PE HPI Details Patient is a 48 year male here today For annual physical .? Patient's past medical history is significant mild intermediate asthma Concern--> having right lateral elbow pain consistent with tennis elbow. Also has bilateral hand joint pain at times being exposed to cold environments. ?.. ?Pmhx: mild asthma, does not need to use an inhaler.? .. Colon cancer screening- received colonoscopy in 2022, polyps found though hyperplastic. Repeat 10 years Labs--he does have history of borderline high total cholesterol. He will work on lifestyle modifications to help reduce his high cholesterol foods in his diet ?.. ?Vaccine :? REports he is UTD with Tdap and flu from his prev PCP, UTD With COVID.. [facility], LAT[facility] Medical History (Updated 11/23/23 @ 13:46 by Melecio Juarez PA-C) Annual physical exam Screening for diabetes mellitus (DM) Pre-op examination Colon cancer screening Screening for hypothyroidism Screening for hypercholesterolemia History of back pain Asthma Right patella fracture Surgical History S/P ORIF (open reduction internal fixation) fracture (~04/14/20) Family History Mother Mental health disorder Breast cancer in female Social History (Updated 11/23/23 @ 13:36 by Melecio Juarez PA-C) Housing: Apartment Are you a primary auto care center manager to a significant other at home: No Do you presently have visiting nurse or other home services: No Alcohol intake: current Alcohol intake frequency: 0-2 drinks per day Alcohol type: beer Patient Tobacco Use Status: Current everyday Tobacco user Tobacco use type: Smokeless Tobacco e-Cigarette/Vaping Use: Currently Using Substance Use Type: Marijuana service: No Current occupational status: employed 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 1. Little interest or pleasure in doing things: not at all 2. Feeling down, depressed, or hopeless: not at all 3. Trouble falling or staying asleep, or sleeping too much: not at all 4. Feeling tired or having little energy: not at all 5. Poor appetite or overeating: not at all 6. Feeling bad about yourself - or that you are a failure or have let yourself or your family down: not at all 7. Trouble concentrating on things, such as reading the newspaper or watching television: not at all 8. Moving or speaking so slowly that other people could have noticed. Or the opposite - being so fidgety or restless that you have been moving around a lot more than usual: not at all 9. Thoughts that you would be better off or of hurting yourself in some way: not at all Total score: 0 Depression Screening Interpretation: Negative Depression Screening Done: Yes 27552 - PHQ-9 Billing: Yes Source: Developed by Drs. Jamie Thornton, Chapis Luna, Logan Jules and colleagues, with an educational fred from [employer]. Thrive Questionnaire Date Thrive assessed: 11/23/23 I am a: Patient What is your living situation today?: I have a steady place to live Within the past 12 months, did the food you bought not last and you didn't have the money to get more?: Never true Within the past 12 months, did you worry whether your food would run out before you got money to buy more?: Never true Do you have trouble paying for medicines?: No Do you have trouble getting transportation to medical appointments?: No Do you have trouble paying your heating and electricity bill?: No Do you have trouble taking care of your child, family member or friend?: No Do you have trouble with day-to-day activities such as bathing, preparing meals, shopping, managing finances, etc.?: No Are you currently unemployed and looking for a job?: No Are you interested in more education?: No Please select the resources that you would like help with: None THRIVE Score: 0 AUDIT C Alcohol Use Questionnaire (AUDIT-C) 1. How often do you have a drink containing alcohol?: Never 3. How often do you have six or more drinks on one occasion?: Never Total Score: 0 ARELI-7 AMB Questionnaire ARELI-7 Date ARELI - 7 assessed: 11/23/23 Feeling nervous, anxious, or on edge: 0 = Not at all Not being able to stop or control worryin = Not at all Worrying too much about different things: 0 = Not at all Trouble relaxin = Not at all Being so restless that it is hard to sit still: 0 = Not at all Becoming easily annoyed or irritable: 0 = Not at all Feeling afraid as if something awful might happen: 0 = Not at all Total ARELI-7 score (0-4 normal; 5-9 mild; 10-14 moderate; 15-21 severe): 0 Source: Developed by Drs. Jamie Thornton, Chapis Luna, Logan Jules and colleagues, with an educational fred from [employer]. ARELI-7 Assessment Billing ARELI-7 Assessment Tool: ARELI-7 Assessment 23053 Review of Systems Const Denies body aches, Denies chills, Denies excessive sweating, Denies fatigue, Denies fever(s) and Denies headache(s) Eyes Denies blurry vision ENT Denies dysphagia, Denies vertigo, Denies dizziness, Denies headache(s), Denies hearing loss and Denies tinnitus Card Denies chest pain, Denies chest pain with activity, Denies syncope, Denies irregular heart rhythm and Denies dyspnea Resp Denies chest congestion, Denies cough, Denies hemoptysis, Denies dyspnea and Denies wheezing GI Denies abdominal pain, Denies melena, Denies hematochezia, Denies coffee ground emesis, Denies dysphagia, Denies diarrhea, Denies nausea and Denies vomiting Denies difficulty urinating, Denies dysuria, Denies urinary frequency, Denies urinary hesitancy and Denies urinary urgency Musc Denies arthralgias, Denies limited range of motion, Denies muscle cramps and Denies muscle weakness Skin/Breast Denies rash and Denies skin ulcer Neuro Denies Abnormal speech present, Denies confusion, Denies vertigo, Denies dizziness, Denies syncope, Denies headache(s), Denies memory loss and Denies seizure-like activity Psych Denies anxiety, Denies confusion, Denies depression, Denies memory loss, Denies panic attacks and Denies paranoia Endo Denies excessive sweating, Denies fatigue, Denies flushing, Denies polydipsia and Denies polyuria Aller/Immun Denies wheezing Physical exam (Primary Care) Vital Signs: Last Vital Signs Pulse 80 11/23/23 13:23 BP 102/74 11/23/23 13:23 Pulse Ox 95 11/23/23 13:23 Oxygen Delivery Method Room Air 11/23/23 13:23 BMI result Body Mass Index 21.0 Tobacco/Smoking Status: Tobacco use Status Tobacco use date assessed 11/23/23 11/23/23 13:27 Patient Tobacco Use Status Current everyday Tobacco 11/23/23 13:36 Tobacco use type Smokeless Tobacco 11/23/23 13:36 e-Cigarette/Vaping Use Currently Using 11/23/23 13:36 PHQ-9: PHQ-9 Score PHQ-9: Total score 0 11/23/23 13:37 Depression Screening Interpretation: Negative Thrive Assessment: Date of Thrive Assessment Date Thrive assessed 11/23/23 11/23/23 13:27 Const General: cooperative, comfortable, no acute distress, alert and awake; No confusion Orientation/consciousness: oriented to person, oriented to place, patient oriented x3 and No confusion HENMT Head: Yes normocephalic Ears: external ears normal and TM's normal bilaterally Face and sinus: No sinus tenderness Mouth: Normal oral and palatal mucosa present and tongue normal Teeth and gingiva: dentition normal and gingiva normal Throat: Yes posterior oropharynx normal, Yes tonsils normal and Yes uvula midline Eyes Conjunctivae: conjunctivae normal Sclerae: sclerae normal Pupils: Equal, round and reactive pupils present EOM: EOMs intact bilaterally Direct Ophthalmoscopy: No no photophobia Neck Neck: Yes no lymphadenopathy, No tender and Yes no JVD Thyroid: Thyroid normal Carotids: no bruits Chest Chest palpation & inspection: no tenderness Resp Effort & Inspection: normal respiratory effort, no audible wheezes, not labored and no stridor Auscultation: no crackles, no rales, no rhonchi and no wheezes Cardio Jugular venous distension: no JVD Rate: regular rate, not bradycardic and not tachycardic Rhythm: regular rhythm Bruits: no carotid bruits Peripheral pulses: Peripheral pulses 2+ throughout GI Inspection: Yes normal to inspection, No abdominal wall ecchymosis and No visible herniation Palpation (GI): Soft to palpation, nontender, no guarding, not rigid and No hepatosplenomegaly present Auscultation: normoactive bowel sounds General: Yes no CVA tenderness Back/Spine/Pelvis Back: no CVA tenderness and No back tenderness Cervical Spine: cervical ROM normal Thoracic/Lumbar Spine: thoracic and lumbar spine normal to inspection, straight leg raise negative bilaterally, No thoraco-lumbar ROM limited and No lumbar spinal tenderness Skin Lesions: no lesions Rashes: no rashes Wounds: no wounds Neuro General: oriented to person, oriented to place, patient oriented x3, CN's II-XI intact bilaterally and No confusion Cranial nerves: Yes Equal, round and reactive pupils present and Yes Normal accommodation reflex present Cognition (Neuro): normal cognition Speech: No Abnormal speech present Gait exam (Neuro): Normal gait present Motor exam (neuro): 5/5 motor strength present throughout Extrem Right upper extremity: full ROM; no cyanosis Left upper extremity: full ROM; no cyanosis Right lower extremity: no edema Left lower extremity: no edema Psych Appearance: grossly normal Mental Status: mental status grossly normal Affect: normal affect Attitude: cooperative Thought process: Normal thought process present Assessment and Plan Assessment & Plan (1) Annual physical exam: Code(s): Z00.00 - Encounter for general adult medical examination without abnormal findings (2) Asthma: Code(s): J45.909 - Unspecified asthma, uncomplicated Qualifiers: Asthma complication type: unspecified Asthma persistence: intermittent Asthma severity: mild Qualified Code(s): J45.20 - Mild intermittent asthma, uncomplicated Plan: Patient reports his asthma has been well controlled without need for an albuterol inhaler. (3) Right lateral epicondylitis: Code(s): M77.11 - Lateral epicondylitis, right elbow Plan: Patient continues to suffer with right lateral epicondylitis likely secondary to his employment. He is interested in speaking with orthopedic about treatment. Advised on compression sleeve, occupational therapy and use of NSAID as needed. (4) Hand arthritis: Code(s): M19.049 - Primary osteoarthritis, unspecified hand Plan: He does report hand pain worse in cold temperatures. Likely has osteoarthritis. Will send for rheumatology testing. (5) Screening for diabetes mellitus (DM): Code(s): Z13.1 - Encounter for screening for diabetes mellitus (6) Insomnia: Code(s): G47.00 - Insomnia, unspecified Qualifiers: Insomnia type: primary Qualified Code(s): F51.01 - Primary insomnia Plan: At times has trouble sleeping. He does report hydroxyzine was helpful to help him sleep. Orders: Orders DIO Reflex Titer and Pattern Today M19.049 - Primary osteoarthritis, unspecified hand Comprehensive Varney. Panel Fast Today Z13.1 - Encounter for screening for diabetes mellitus Lipid Panel Today E78.9 - Disorder of lipoprotein metabolism, unspecified Prostate Specific Antigen Scr Today E78.9 - Disorder of lipoprotein metabolism, unspecified, Z12.5 - Encounter for screening for malignant neoplasm of prostate Cyclic Citrullinated Peptide Today M19.049 - Primary osteoarthritis, unspecified hand Rheumatoid Factor Today M19.049 - Primary osteoarthritis, unspecified hand Referrals Orthopedics Referral M77.11 - Lateral epicondylitis, right elbow Medications: New hydroxyzine HCl 25 mg PO BEDTIME 15 days 15 tabs 1RF G47.00 - Insomnia, unspecified Coding Level of Care Code Est Pt Prev Care 40-64y(26067) Diagnoses Annual physical exam Z00.00 Mild intermittent asthma, unspecified whether complicated J45.20 Asthma complication type: unspecified Asthma persistence: intermittent Asthma severity: mild Right lateral epicondylitis M77.11 Hand arthritis M19.049 Screening for diabetes mellitus (DM) Z13.1 Primary insomnia F51.01 Insomnia type: primary Additional Codes ARELI-7 Assessment Billing - ARELI-7 Assessment Tool: ARELI-7 Assessment 29527 ([id number])
[2023-11-23 13:23] VITALS: BP 102/74; PULSE 80; O2SAT 95; BMI 21.0
== END 2023-11-23 13:50 | disposition home or self-care (01) ==
PROVIDERS: PCP Physician Assistant; Visit Provider Physician Assistant
DX: Z00.00 Encounter for general adult medical examination without abnormal findings (principal); J45.20 Mild intermittent asthma, uncomplicated; M77.11 Lateral epicondylitis, right elbow; M19.049 Primary osteoarthritis, unspecified hand; Z13.1 Encounter for screening for diabetes mellitus; F51.01 Primary insomnia
CPT/HCPCS: 99396

== ENCOUNTER 2023-12-16 12:31 | Outpatient (AMB) | payer OTHER, SELFPAY ==
--- NOTE | 2023-12-16 12:37 | A.OFFVIS_ITS ---
Intake Vital Signs 12/16/23 12:45 Height 5 ft 8 in Weight 138 lb BMI 21.0 Intake Visit Reasons: Newprob-Lateral epicondylitis, right elbow Intake Note: Lino a 48 year old right hand dominant male presents today as an established patient for an evaluation of right elbow. Patient reports intermittent pain has been present for about 6 months that may be contributed from repetitive motion at work. States improvement in his pain the past 6-7 weeks. He continues to have tenderness to the touch. Denies injury. Allergies No Known Allergies Allergy (Verified 11/23/23 13:38) HPI Newprob-Lateral epicondylitis, right elbow HPI Details 48-year-old right hand dominant male who presents to the office today for evaluation of right elbow pain for about 6 months. He states he has intermittent pain in his elbow which he attributes from repetitive motions at work. He reports he has improvement in his pain for the last 7 weeks however he continues to have tenderness to touch. He has not had any injury in the past. He would like to discuss about having a surgery. He works in the [employer]. [facility] Medical History (Updated 11/23/23 @ 13:46 by Melecio Juarez PA-C) Annual physical exam Screening for diabetes mellitus (DM) Pre-op examination Colon cancer screening Screening for hypothyroidism Screening for hypercholesterolemia History of back pain Asthma Right patella fracture Surgical History S/P ORIF (open reduction internal fixation) fracture (~04/14/20) Family History Mother Mental health disorder Breast cancer in female Social History Housing: Apartment Are you a primary hemodialysis patient care specialist to a significant other at home: No Do you presently have visiting nurse or other home services: No Alcohol intake: current Alcohol intake frequency: 0-2 drinks per day Alcohol type: beer Patient Tobacco Use Status: Current everyday Tobacco user Tobacco use type: Smokeless Tobacco e-Cigarette/Vaping Use: Currently Using Substance Use Type: Marijuana service: No Current occupational status: employed 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 No erythema or swelling. ROM full without pain. Tenderness over the lateral epicondyle and pain with resisted wrist extension. NVI. Assessment & Plan Assessment & Plan (1) Right lateral epicondylitis: Code(s): M77.11 - Lateral epicondylitis, right elbow Plan We discussed options which include PT, NSAIDs and injections. The patient will defer on the injection today and proceed with PT and NSAIDs. If symptoms persist, the patient will contact me for an injection, otherwise, PRN. Orders: Orders OT Evaluation and Treatment Today M77.11 - Lateral epicondylitis, right elbow Patient Instructions: Scribed for Kelly Rodas PA-C, by Ousmane Gee medical instrument technician, on 12/16/2023 at 12:45 PM EST. Kelly Lr PA-C, have personally reviewed and agree with the information entered by the scribe. Coding Level of Care Code New Pt Level 3 (93096) Diagnoses Right lateral epicondylitis M77.11
[2023-12-16 12:45] VITALS: BMI 21.0
== END 2023-12-16 13:54 | disposition home or self-care (01) ==
PROVIDERS: PCP Physician Assistant; Visit Provider Physician Assistant
DX: M77.11 Lateral epicondylitis, right elbow (principal)
CPT/HCPCS: 99203

== ENCOUNTER → 2023-12-16 12:31 | Outpatient (BNVA) | payer OTHER, SELFPAY | PROVIDERS: PCP Physician Assistant; Visit Provider Physician Assistant | DX: M77.11 Lateral epicondylitis, right elbow (principal) | CPT/HCPCS: 99202 ==